=== PATIENT | female | born 1995 | race Caucasian/White ===

== ENCOUNTER 2019-06-14 22:41 | Emergency (ER) | payer OTHER ==
[~2019-06-14] VITALS: Ht 165.1 cm; Wt 70.3 kg
[2019-06-14 22:48] VITALS: Ht 165.1 cm; Wt 70.3 kg
[2019-06-14 23:34] LABS: BASOPHIL % 0.6 % (0-2); PLATELET COUNT 200 x10^3mcL (130-400); RED CELL DISTRIBUTION WIDTH 12.9 % (11.5-14.5)
[2019-06-14 23:43] LABS: CALCIUM 8.2 mg/dL (8.5-10.1); CARBON DIOXIDE 25.7 mmol/L (21-32); CHLORIDE SERUM 105 mmol/L (98-107); CREATININE SERUM 0.7 mg/dL (0.6-1.0); GFR1 > 60 mL/min; GLUCOSE SERUM 92 mg/dL (74-106); POTASSIUM SERUM 3.7 mmol/L (3.5-5.1); SODIUM SERUM 142 mmol/L (136-145)
[2019-06-14 23:45] LABS: AMPHETAMINE QUAL UR NONE DETECTED (See below)
[2019-06-14 23:52] LABS: ALKALINE PHOSPHATASE 65 U/L (46-116); ALT/SGPT 24 U/L (14-59); AST/SGOT 16 U/L (15-37); BILIRUBIN TOTAL 0.2 mg/dL (0.20-1.00); TOTAL PROTEIN, SERUM 7.3 g/dL (6.4-8.2)
[2019-06-15 00:02] VITALS: BP 127/64
== END 2019-06-15 00:02 | disposition left against medical advice (07) ==
LOC: ED 22:41
PROVIDERS: Emergency Medicine
DX: R41.82 Altered mental status, unspecified (principal); R11.10 Vomiting, unspecified; F10.129 Alcohol abuse with intoxication, unspecified
CPT/HCPCS: 36415; G0480

== ENCOUNTER 2019-10-12 01:51 | Emergency (ER) | payer OTHER ==
[~2019-10-12] VITALS: Ht 165.1 cm; Wt 59.9 kg
[2019-10-12 01:59] VITALS: BP 107/65
== END 2019-10-12 04:30 | disposition home or self-care (01) ==
LOC: ED 01:51
DX: R11.2 Nausea with vomiting, unspecified (principal); R10.9 Unspecified abdominal pain; F10.129 Alcohol abuse with intoxication, unspecified
CPT/HCPCS: J2405; J7030